=== PATIENT | female | born 1955 | race Two or more races ===

== ENCOUNTER 2024-10-19 18:51 | Emergency (ER) | payer OTHER ==
[~2024-10-19] VITALS: Ht 152.4 cm; Wt 70.9 kg
[2024-10-19 18:57] VITALS: TEMP 97.8
[2024-10-19] MEDS ORDERED: ALEN70TA80 PO (19:03)
[2024-10-19] MEDS: HYDROCODONE/ACETAMINOPHEN 5-325 MG TABLET PO ONE (19:49)
[2024-10-19] MEDS: KETOROLAC TROMETHAMINE 60 MG/2 ML VIAL IM ONE (19:49)
[2024-10-19 20:15] VITALS: BP 152/64; PULSE 82; RESP 16; O2SAT 99
[2024-10-19] MEDS ORDERED: NAPR-1196 PO (20:19)
[2024-10-19] MEDS ORDERED: HYDR-4062 PO (20:19)
[2024-10-19] MEDS ORDERED: METH-659 PO (20:19)
== END 2024-10-19 20:33 | disposition home or self-care (01) ==
LOC: EMS 18:51
DX: G89.29 Other chronic pain (principal); M54.50 Low back pain, unspecified; M81.0 Age-related osteoporosis without current pathological fracture; M19.90 Unspecified osteoarthritis, unspecified site; Z79.899 Other long term (current) drug therapy
CPT/HCPCS: 99283; 96372; J1885